=== PATIENT | female | born 1995 ===

== ENCOUNTER 2016-07-13 04:09 | Inpatient (IN) | payer BC, MEDICAID ==
[2016-07-13] MEDS ORDERED: OXYTOCIN IN LR 500 ML IV ONE (07:38)
[2016-07-13] MEDS ORDERED: LIDOCAINE 1% (PRES FREE) 30 ML VIAL ONE (07:41)
[2016-07-13] MEDS ORDERED: LIDOCAINE Viscous 2% 15 ML UDCUP ONE (07:41)
[2016-07-13] MEDS ORDERED: MINERAL OIL 25 ML BOT ONE (07:41)
[2016-07-13] MEDS ORDERED: OXYTOCIN 10 UNITS/ML VIAL ONE (07:41)
[2016-07-13] MEDS ORDERED: LACTATED RINGERS 1,000 ML ONE (07:42)
[2016-07-13] MEDS ORDERED: IV START KIT ONE (07:42)
[2016-07-13] MEDS ORDERED: PUMP TUBING ONE (07:42)
[2016-07-13] MEDS ORDERED: SODIUM CHLORIDE 0.9% FLUSH 10 ML ONE (07:43)
[2016-07-13 08:18] LABS: HEMATOCRIT 36.9 % (37.0-47.0); HEMOGLOBIN 12.3 gm/l (12.0-16.0); MEAN CELL VOLUME 80.2 fl (81.0-99.0); MEAN CORPUSCULAR HEMOGLOBIN 26.7 pg (27.0-31.0); MEAN CORPUSCULAR HGB CONC 33.3 g/dl (33.0-37.0)
--- NOTE | 2016-07-13 09:12 | PCMAN ---
OB Admission Note - History : 2 Term: 0 : 0 Abortions (S&E): 1 Livin Gestational Age (weeks): 40 Days (#/7): 4 Admit Cervical Dilation:: 4 Admit Cervical Effacement (%):: 90 Admit Station:: -1 Admit Presentaton:: cephalic Membrane Status: Intact Labor Onset (Date): 07/13/16 Labor Onset (Time): 07:30 Contractions: Yes Contraction Frequency:: 4-5 min Heart Rate:: 140 Status:: mod jos, no decels EFW:: 3600g Summary of Course:: 21yo gabriela 07/09/16 at 40+4 Admitted in labor at 4cm (changed from 1.5cm earlierin triage) Transfer of care from [place] at 17w, dated by u/s at [place] [facility] with Dr. Cason h/o Bariatric surgery, breast reduction, 33lb weight gain this h/o appendectomy, tonsillectomy had u/s at 21+3w with gabriela 07/04/16 posterior placenta - Labs Blood Type: A (+) positive Rubella Status: Immune GBS Status: Negative - Physical Exam General: Moderate Distress Psych/Mental Status: Mood/Affect Appropriate Neurological: Grossly Intact Abdomen: Other (efw 3600g) Genitourinary: Other (cx=4.5/90/-1, cephalic, membranes intact) - Additional Comments 21yo at 40+4 admitted in labor pt considering epidural but requests IV pain meds for now expectant mgmt
[2016-07-13] MEDS: BUTORPHANOL TARTRATE 1 MG/ML VIAL IV PRN ×3 (09:14→14:48)
[2016-07-13 09:35] VITALS: BMI 32.3
[2016-07-13] MEDS: LACTATED RINGERS 1,000 ML IV PRN ×2 (16:00→17:14)
[2016-07-13] MEDS ORDERED: EPIDURAL PUMP SET ONE (16:07)
[2016-07-13] MEDS ORDERED: FENTANYL/ROPIVACAINE EPIDURAL 250 ML EP ONE (16:07)
[2016-07-13] MEDS ORDERED: BUPIVACAINE 0.25% (PRES FREE) 30 ML VIAL ONE (16:19)
[2016-07-13] MEDS ORDERED: EPIDURAL PROCEDURE TRAY ONE (16:19)
[2016-07-13] MEDS ORDERED: DIPHENHYDRAMINE HCL 50 MG/1 ML VIAL IV PRN (16:30)
[2016-07-13] MEDS ORDERED: ONDANSETRON 4 MG/2ML 2 ML VIAL IV PRN (16:30)
[2016-07-13] MEDS ORDERED: EPHEDRINE SULFATE 50 MG/ML 1ML VIAL IV PRN (16:30)
[2016-07-13] MEDS ORDERED: SODIUM CHLORIDE 0.9% 500 ML IV PRN (16:30)
[2016-07-13] MEDS ORDERED: LACTATED RINGERS 500 ML IV PRN (16:30)
[2016-07-13] MEDS ORDERED: NALBUPHINE HCL 20 MG/ML AMP IV PRN (16:30)
[2016-07-13] MEDS ORDERED: METOCLOPRAMIDE HCL 5 MG/ML 2ML VIAL IV PRN (16:30)
[2016-07-13] MEDS ORDERED: NALOXONE HCL 0.4 MG/ML VIAL IV PRN (16:30)
[2016-07-13] MEDS: FENTANYL/ROPIVACAINE EPIDURAL 250 ML EP SCH (16:49)
--- NOTE | 2016-07-13 17:04 | PDOC36 ---
Provider Note Subject: intrapartum note Note: Pt had AROM at 1430 - clear fluid, was 6/100/0 at that time Pt now requested epidural FHT: 130's, reactive, mod jos, no decels Stewart: q2-4 min SVE by RN - 7cm/100/0 cont expectant mgmt
--- NOTE | 2016-07-13 19:55 | PDOC36 ---
Provider Note Subject: intrapartum note Note: Pt is comfortable with epidural FHT: 130's, reactive, mod jos, mild variable decelerations TOCO: q2-4 min SVE: FD/100/+1 remove bartlett and start pushing
[2016-07-13] MEDS: LACTATED RINGERS 1,000 ML IV SCH (21:10)
[2016-07-13] MEDS ORDERED: MINERAL OIL 25 ML BOT TP ONE (21:53)
--- NOTE | 2016-07-13 22:18 | PCMDEL ---
Delivery Note - Delivery Delivery (Date): 07/13/16 Delivery (Time): 21:57 Gender: Male Presentation: Cephalic Position: OA Umbilical Cord: 3 Vessel Delayed Cord Clamping:: < 1-2 min 1 Minute Total: 9 5 Minute Total: 9 Placenta:: complete EBL:: 200 Perineum:: 2nd degree perineal Suture:: 3-O vicryl Anesthesia/Meds:: epidural Comments:: Pt progressed well and pushed well Baby delivered to CHRISTIAN. Shoulders delivered easily. Bulb suction applied to mouth and nares. After brief delay cord clamped and cut. Baby to Abdomen. Placenta delivered complete with 3VC. 2nd degree laceration repaired with 3-O Vicryl. EBL 200cc.
[2016-07-13] MEDS ORDERED: DOCUSATE SODIUM 100 MG CAPSULE PO PRN (22:27)
[2016-07-13] MEDS ORDERED: BENZOCAINE/MENTHOL 60 APPLIC/BOT TP PRN (22:27)
[2016-07-13] MEDS ORDERED: SENNOSIDES 8.6 MG TABLET PO PRN (22:27)
[2016-07-13] MEDS ORDERED: MAGNESIUM HYDROXIDE 30 ML UDCUP PO PRN (22:27)
[2016-07-13] MEDS ORDERED: LANOLIN 50 APPLIC/7G TUBE TP PRN (22:27)
[2016-07-13] MEDS: IBUPROFEN 800 MG TABLET PO PRN (23:06)
[2016-07-14] MEDS: OXYCODONE/ACETAMINOPHEN 5/325 MG TABLET PO PRN ×5 (01:39→18:15)
[2016-07-14] MEDS: IBUPROFEN 800 MG TABLET PO PRN ×3 (06:17→21:44)
[2016-07-14 06:36] LABS: HEMATOCRIT 32.8 % (37.0-47.0); HEMOGLOBIN 10.9 gm/l (12.0-16.0)
[2016-07-14] MEDS: LACTATED RINGERS 1,000 ML IV SCH ×2 (07:08→07:10)
[2016-07-14] MEDS: FENTANYL/ROPIVACAINE EPIDURAL 250 ML EP SCH (07:10)
--- NOTE | 2016-07-14 08:31 | PDOC44 ---
- Subjective Day: 1 Doing well. No complaints. Reports Flatus, Reports Pain Tolerable, Reports , Reports Lochia Moderate, Reports Tolerating Regular Diet - Objective Temp Pulse Resp BP Pulse Ox 97.9 F 90 18 103/62 07/13/16 22:29 07/14/16 01:48 07/14/16 01:48 07/14/16 01:48 Lab Results 07/14/16 06:10 Hgb 10.9 L Hct 32.8 L Current Medications Generic Name Dose Route Start Last Admin Trade Name Freq PRN Reason Stop Dose Admin Benzocaine/Menthol 1 applic 07/13/16 22:27 07/14/16 06:18 Dermoplast TP 1 bot PRN PRN Administration Patient Comfort Docusate Sodium 100 mg 07/13/16 22:27 Colace PO DAILY PRN Comfort Emollient Ointment 1 applic 07/13/16 22:27 [id number] TP PRN PRN sore nipples Ropivacaine/Fentanyl/NS 250 mls @ 0 mls/hr 07/13/16 16:30 07/14/16 07:10 Fentanyl 2 Mcg/Ml + Ropivacaine 0.125% Ep Bag EP Not Given EPI JOSEPH Protocol Per Protocol Ibuprofen 800 mg 07/13/16 22:27 07/14/16 06:17 Motrin PO 800 mg Q6H PRN Administration Pain (Mild) Magnesium Hydroxide 30 ml 07/13/16 22:27 Milk Of Magnesia PO BEDTIME PRN Constipation Oxycodone/Acetaminophen 1 - 2 tab 07/13/16 22:27 07/14/16 03:45 Percocet 5/325 PO 1 tab Q4H PRN Administration Pain (Moderate) Senna 17.2 mg 07/13/16 22:27 Senokot PO BEDTIME PRN Comfort Sodium Chloride 10 ml 07/13/16 22:27 Normal Saline 10ml Flush IV PRN PRN IV Flush - Physical Exam General: Afebrile Psych/Mental Status: Mood/Affect Appropriate, Judgment/Insight Intact, Bonding Well Neurological: Grossly Intact, Alert, Oriented x 4 HEENT: Atraumatic, PERRLA, EOMI, Mucous membr. moist/pink Lungs: Clear to Auscultation Bilaterally, Normal Air Movement Cardiovascular: Regular Rate and Rhythm, Normal S1, Normal S2 Fundus: Firm, Midline, Below Umbilicus Abdomen: Normal Bowel Sounds Lochia: Moderate Skin: Normal Color, Warm, Dry, Intact - Problems:Assessment/Plan (1) Vaginal delivery Status: AcuteAssessment/Plan: Stable. Encourage and ambulation. Anticipate D/C home tomorrow. Disposition: Anticipate DC Home Tomorrow
[2016-07-15] MEDS: OXYCODONE/ACETAMINOPHEN 5/325 MG TABLET PO PRN ×2 (01:15→06:04)
[2016-07-15] MEDS: FENTANYL/ROPIVACAINE EPIDURAL 250 ML EP SCH (06:04)
[2016-07-15] MEDS: IBUPROFEN 800 MG TABLET PO PRN (06:04)
[2016-07-15 07:14] VITALS: BP 92/54
--- NOTE | 2016-07-15 08:41 | PDOC39B ---
Hospital Course: ADMIT DATE: 07/13/16 DISCHARGE DATE: 07/15/16 ADMISSION DIAGNOSES: term , labor PROCEDURES: normal vaginal delivery HISTORY OF PRESENT ILLNESS: 21 year old G2 T0 L0 at 40 weeks 4 days presenting with labor. HOSPITAL COURSE: The patient had epidural and normal vaginal delivery, 2nd degree perineal laceration. Baby M 7lbs 11oz, 9/9 apgars. By day of discharge the patient is ambulating, eating, voiding, and passing flatus without difficulty. Pain is controlled and lochia is appropriate. She is []. Laboratory Tests 07/13/16 07/14/16 08:12 06:10 WBC 10.9 H RBC 4.60 Hgb 12.3 10.9 L Hct 36.9 L 32.8 L MCV 80.2 L MCH 26.7 L MCHC 33.3 RDW 13.0 Plt Count 167 Syphilis IgG/IgM Ab Non-reactive Vital Signs Last 12 Hours Temp Pulse Resp BP 07/15/16 07:08 98.2 F 84 16 92/54 07/15/16 02:37 98.0 F 88 16 92/50 - Physical Exam Vital Signs: Temp Pulse Resp BP Pulse Ox 98.2 F 84 16 92/54 07/15/16 07:08 07/15/16 07:08 07/15/16 07:08 07/15/16 07:08
== END 2016-07-15 10:09 | disposition home or self-care (01) | DRG 775 ==
LOC: FBC 04:09 → FBCOUT 04:09 → FBC 07:32
PROVIDERS: ADMIT Obstetrics & Gynecology; ATTEND Obstetrics & Gynecology
PROC: 10E0XZZ Delivery of Products of Conception, External Approach (ICD-10-PCS; principal; 2016-07-13)
PROC: 0KQM0ZZ Repair Perineum Muscle, Open Approach (ICD-10-PCS; 2016-07-13)
PROC: 10907ZC Drainage of Amniotic Fluid, Therapeutic from Products of Conception, Via Natural or Artificial Opening (ICD-10-PCS; 2016-07-13)
DX: O70.1 Second degree perineal laceration during delivery (principal); Z37.0 Single live birth; O76 Abnormality in fetal heart rate and rhythm complicating labor and delivery; Z3A.40 40 weeks gestation of pregnancy